=== PATIENT | male | born 1990 | race African-American/Black ===

== ENCOUNTER 2017-04-12 07:56 | Emergency (ER) | payer SELFPAY ==
[2017-04-12 07:58] VITALS: BP 132/81; BMI 33.0
--- NOTE | 2017-04-12 08:27 | DR.GENAD ---
HPI - PCP Primary Care Physician: NFD - HPI Comment HPI Comment: FEVER AT HOME. GETTING WORSE. NOW HAVING PROBLEM SWELLING LIQUID. COUGHING, PRODUCTIVE, YELLOW SPUTUM. HEADACHE AND POSR NASAL DRAINAGE. - Complaint/Symptoms Chief Complaint Doctors Comments: COUGH, COLD , ONGESTION AND SORE THROAT WITH DYSPHAGIA TIMES 2 DAYS. Chief Complaint:: PT. C/O SORE THROAT, MORE PAINFUL TO THE LEFT SIDE. PT. STATES IT IS HARD FOR HIM TO SWALLOW FOODS. - Nurses notes reviewed Nurses Notes Review: Yes - Source History Provided: Patient - Mode of Arrival Mode of Arrival: Ambulatory - Timing Onset of Chief Complaint: 04/10/17 Came on: Suddenly - Duration Duration: Constant Duration: Days - Severity Severity: Moderate PMH - PMH Past Medical History: Yes Past Medical History: Asthma Past Surgical History: Yes Surgical History: Other - Family History History of Family Medical Conditions: Yes Family Medical History: Hypertension - Social History Does patient currently use any type of tobacco product: Yes Have you used tobacco products in the last 12 months: Yes Type of Tobacco Use: Cigarettes Does any household member use tobacco: No Alcohol Use: Occasionally Do you use any recreational Drugs:: No Lives With: Family Lives Where: Home - infectious screening In the last 2 months have you had wt loss of >10#?: NO Have you had fever, night sweats or hemotysis?: No Have you traveled outside the country in the last 6 months?: No Isolation: Standard ROS - Review of Systems Constitutional: No Symptoms Reported Eyes: No Symptoms Reported ENTM: Nose Discharge, Nose Congestion, Throat Pain, Throat Swelling. negative: Ear Pain Respiratoy: Productive Cough. negative: Short of Breath, Wheezing, Hemoptysis Cardiovascular: No Symptoms Reported Gastrointestinal/Abdominal: No Symptoms Reported Genitourinary: No Symptoms Reported Neurological: Headache, Dizziness Musculoskeletal: No Symptoms Reported Integumentary: No Symptoms Reported Hematologic/Lymphatic: No Symptoms Reported Endocrine: No Symptoms Reported All Other Systems: Reviewed and Negative PE - Vital Signs Vitals: Temperature 99.1 F Pulse Rate 68 Respiratory Rate 18 Blood Pressure [Right Arm] 112/69 Blood Pressure [Left Arm] 111/64 Blood Pressure 132/81 O2 Sat by Pulse Oximetry 95 - General Limitations: No Limitations General Appearance: Alert - Head Head Exam: Normal Inspection - Eyes Eye exam: Normal Appearance - ENT ENT Exam: Normal External Ear Exam. negative: Normal Oropharynx (THROAT RED, TONSIL SWOLLEN,NO EXUDATES) External Ear Exam: Normal External Inspection TM/Canal Exam: Bilateral Bulging Nose Exam: Sinus Tenderness (FRONTAL SINUS TENDER.) Mouth Exam: Normal Inspection Throat Exam: Tonsillar Erythema, Tonsillomegaly. negative: Tonsillar Exudate - Neck Neck Exam: Trachea Midline - Chest Chest Inspection: Symmetric Chest Wall Rise - Respiratory Respiratory Exam: Normal Lung Sounds Bilat Respiratory Exam: Bilateral Clear to Auscultation - Cardiovascular Cardiovascular Exam: Regular Rate, Normal Rhythm, Normal Heart Sounds - Abdominal Exam Abdominal Exam: Normal Bowel Sounds, Soft. negative: Tenderness - Extremities Extremities Exam: Normal Inspection - Back Back Exam: Normal Inspection - Neurologic Neurological Exam: Alert, Oriented X3 - Psychiatric Psychiatric Exam: Normal Affect, Normal Mood - Skin Skin Exam: Normal Color MDM - Differential Diagnosis Differential Diagnosis: STREPPHARYNGITIS, SINUSITIS, BRONCHITIS Course - Treatment Treatment: SEE ORDERS. - Education/Counseling Education/Counseling: Patient, Education Educated On: Treatment, Diagnosis, Needs for Follow Up ROR - Labs Reviewed Laboratory Results Reviewed?: Yes Laboratory: Streptococcus Screen Positive (NEGATIVE) A 04/12/17 08:17 - Diagnosis Discharge Problem: Strep pharyngitis, Bronchitis Sinusitis Qualifiers: Sinusitis location: frontal Chronicity: unspecified Qualified Code(s): J32.1 - Chronic frontal sinusitis - Discharge Plan Condition: Stable Prescriptions: Azithromycin [Zithromax] 1 dose PO DAILY #6 tab Cetirizine HCl [Zyrtec Tab 10 mg] 10 mg PO DAILY #30 tab Ibuprofen [MOTRIN TAB 600 MG *] 600 mg PO TID PRN #20 tab PRN Reason: Pain/Inflammation - Follow ups/Referrals Follow ups/Referrals: NFD,None [Primary Care Provider] - 3 days - Instructions Instructions: Sinusitis, Adult, [id number], Strep Throat, [id number], Acute Bronchitis, [id number] Additional Instructions: RETURN TO ED IF WORSE.
[2017-04-12] MEDS ORDERED: TORADOL 60 MG VIAL IM ONE (08:39)
[2017-04-12] MEDS ORDERED: BICILLIN L-A IM ONE ×2 (08:39→08:46)
[2017-04-12] MEDS ORDERED: TORADOL 60 MG VIAL ONE (08:44)
== END 2017-04-12 09:10 | disposition home or self-care (01) ==
LOC: ER 08:00
DX: J40 Bronchitis, not specified as acute or chronic (principal); J32.1 Chronic frontal sinusitis; J02.0 Streptococcal pharyngitis; Z72.0 Tobacco use
CPT/HCPCS: 87880; 96372; 99282; J0570; J1885